=== PATIENT | female | born 1970 | race Caucasian/White ===

== ENCOUNTER 2017-08-30 04:10 | Inpatient (IN) | payer OTHER ==
[~2017-08-30] VITALS: Ht 165.1 cm; Wt 71.4 kg
[~2017-08-30 04:10] MED LIST: AMX500; AMX500 PO
[2017-08-30] MEDS ORDERED: ONDANSETRON INJ 2 MG/ML 2 ML VIAL IV STA (04:40)
[2017-08-30] MEDS ORDERED: MoRPHine SULFATE 4 MG/ML 1 ML CARP\\VIAL IV STA (04:40)
[2017-08-30 05:15] LABS: BASO % 1.2 %; BASO ABS # 0.07 K/uL (0-0.2); EOS % 2.4 %; EOS ABS # 0.14 K/uL (0-0.5); HEMATOCRIT 41.3 % (37-47); HEMOGLOBIN 13.7 g/dL (12.0-16.0); IG# 0.02 K/uL (0.00-0.02); LYMPH % 22.8 %; LYMPH ABS # 1.33 K/uL (1.2-3.4); MEAN CORPUSCULAR HEMOGLOBIN 28.5 pg (25-34); MEAN CORPUSCULAR HGB CONC 33.2 g/dl (32-36); MEAN PLATELET VOLUME 9.8 fL (7.4-10.4); MONO % 8.4 %; MONO ABS # 0.49 K/uL (0.11-0.59); NEUT % 64.9 %; NEUT ABS # 3.79 K/uL (1.4-6.5); PLATELET COUNT 279 K/uL (130-400); RED CELL DISTRIBUTION WIDTH CV 13.3 % (11.5-14.5); RED CELL DISTRIBUTION WIDTH SD 42.3 fL (36.4-46.3); WHITE BLOOD COUNT 5.84 K/uL (4.8-10.8)
[2017-08-30 05:42] LABS: ALBUMIN 4.2 gm/dl (3.4-5.0); ALKALINE PHOSPHATASE 102 U/L (45-117); ALT/SGPT 15 U/L (12-78); CREATININE 0.75 mg/dl (0.60-1.20); GLUCOSE 106 mg/dl (70-99); TOTAL PROTEIN 8.7 gm/dl (6.4-8.2)
[2017-08-30 05:47] LABS: BLOOD UREA NITROGEN 16 mg/dl (7-18); CALCIUM 8.9 mg/dl (8.5-10.1); LIPASE 134 U/L (73-393)
[2017-08-30 05:48] LABS: POTASSIUM 4.4 mmol/L (3.5-5.1); SODIUM 138 mmol/L (136-145)
[2017-08-30 05:53] LABS: AST/SGOT 17 U/L (15-37)
[2017-08-30 05:57] LABS: CARBON DIOXIDE 24 mmol/L (21-32)
[2017-08-30] MEDS ORDERED: ONDANSETRON INJ 2 MG/ML 2 ML VIAL IV PRN (08:15)
[2017-08-30] MEDS ORDERED: OXYCODONE/ACETAMINOPHEN 5-325 TAB PO PRN (08:15)
[2017-08-30] MEDS ORDERED: HYDROmorphone INJ 1 MG/ML SYR IV PRN (08:15)
[2017-08-30] MEDS ORDERED: ACETAMINOPHEN 325 MG TAB PO PRN (08:15)
--- NOTE | 2017-08-30 09:15 | Surgery Consultation ---
Consultation Date of Consultation: Aug 30, 2017. Attending Physician: History of Present Illness pt is a 46 year old female who presents to ER for one day history RUQ pain with nausea and vomiting, the pain is located at RUQ, pt denies fever, no diarrhea, no chest pain, Social History Smoking Status: Never Smoker Smokeless Tobacco Use: No Alcohol Use: none Drug Use: none Allergies Coded Allergies: No Known Allergies (Verified , 08/30/17) Home Medications No Active Prescriptions or Reported Meds Current Inpatient Medications Current Inpatient Medications Medications (Trade) Dose Ordered Sig/Maritza Route Start Time Stop Time Status Last Admin Dose Admin Potassium Chloride/Dextrose/ Sod Cl 1,000 ml @ 100 mls/hr Q10H IV 08/30/17 08:14 09/29/17 08:13 UNV Cefazolin Sodium 1000 mg/Dextrose 55 ml @ 100 mls/hr Q8 IV 08/30/17 14:00 08/31/17 13:59 UNV Ondansetron HCl (Zofran Inj) 4 mg Q4H PRN IV 08/30/17 08:15 09/29/17 08:14 UNV Acetaminophen (Tylenol Tab) 650 mg Q6H PRN PO 08/30/17 08:15 09/29/17 08:14 UNV Oxycodone/ Acetaminophen (Percocet 5-325mg Tab) 1 tab Q4H PRN PO 08/30/17 08:15 09/13/17 08:14 UNV Hydromorphone HCl (Dilaudid Inj) 0.6 mg Q3H PRN IV 08/30/17 08:15 09/13/17 08:14 UNV Ciprofloxacin/ Dextrose 400 mg/ Prmx 200 ml @ 100 mls/hr Q12 IV 08/30/17 09:00 08/31/17 08:59 UNV Review of Systems Constitutional: No fever, No chills, No sweats, No weight loss, No weakness, No fatigue, No problem reported Eyes: No worsening of vision, No eye pain, No redness, No discharge, No diplopia, No problem reported ENT: No hearing loss, No unusual epistaxis, No nasal symptoms, No sore throat, No tinnitus, No dental problems, No trouble swallowing, No problem reported Respiratory: No cough, No sputum, No wheezing, No shortness of breath, No dyspnea on exertion, No dyspnea at rest, No hemoptysis, No problem reported Cardiovascular: No chest pain, No orthopnea, No PND, No edema, No claudication , No palpitations, No problem reported Abdomen: + pain, + nausea, + vomiting Musculoskeletal: No joint pain, No muscle pain, No swelling, No calf pain, No problem reported Genitourinary - Female: No dysuria, No urinary frequency, No urinary urgency, No urinary incontinence, No urinary retention, No hematuria, No dysmenorrhea, No menorrhagia, No metrorrhagia, No rash, No vaginal bleeding, No vaginal discharge, No vaginal itching, No vulvodynia, No , No problem reported Neurologic: No memory loss, No paralysis, No weakness, No numbness/tingling, No vertigo, No balance problems, No problem reported Psychiatric: No depression symptoms, No anhedonism, No anxiety, No insomnia, No substance abuse, No problem reported Endocrine: No fatigue, No excessive thirst, No excessive urination, No problem reported Hematologic / Lymphatic: No abnormal bleeding/bruising, No clotting problems, No swollen lymph nodes, No night sweats, No problem reported Allergic / Immunologic: No environmental allergies, No seasonal allergies, No pet sensitivities, No food allergies, No hives, No frequent infections, No poor healing, No prolonged convalescence, No problem reported Physical Exam Date Time Temp Pulse Resp B/P (MAP) Pulse Ox O2 Delivery O2 Flow Rate FiO2 08/30/17 08:27 70 08/30/17 07:31 62 16 128/76 98 Room Air 08/30/17 06:02 69 16 126/90 95 Room Air 08/30/17 05:07 54 08/30/17 05:00 99 Room Air 08/30/17 05:00 99 Room Air 08/30/17 04:14 36.3 73 18 172/113 100 Room Air General Appearance: WD/WN, no apparent distress Head: normocephalic Eyes: normal inspection ENT: normal ENT inspection Neck: supple, no JVD Respiratory/Chest: chest non-tender, lungs clear, normal breath sounds Cardiovascular: regular rate, rhythm, no edema, no gallop, no JVD, no murmur Abdomen/GI: normal bowel sounds, soft, no organomegaly, no pulsatile mass, normal rectal exam, + tenderness (at RUQ, no rebound pain) Extremities/Musculoskelatal: normal inspection, no calf tenderness, normal capillary refill Neurologic/Psych: no motor/sensory deficits, alert, normal mood/affect Skin: normal color, warm/dry, no rash Laboratory Results Last 24 Hours Test 08/30/17 05:00 08/30/17 05:07 White Blood Count 5.84 K/uL Red Blood Count 4.80 M/uL Hemoglobin 13.7 g/dL Hematocrit 41.3 % Mean Corpuscular Volume 86.0 fL Mean Corpuscular Hemoglobin 28.5 pg Mean Corpuscular Hemoglobin Concent 33.2 g/dl Platelet Count 279 K/uL Mean Platelet Volume 9.8 fL Neutrophils (%) (Auto) 64.9 % Lymphocytes (%) (Auto) 22.8 % Monocytes (%) (Auto) 8.4 % Eosinophils (%) (Auto) 2.4 % Basophils (%) (Auto) 1.2 % Neutrophils # (Auto) 3.79 K/uL Lymphocytes # (Auto) 1.33 K/uL Monocytes # (Auto) 0.49 K/uL Eosinophils # (Auto) 0.14 K/uL Basophils # (Auto) 0.07 K/uL RDW Standard Deviation 42.3 fL RDW Coefficient of Variation 13.3 % Immature Granulocyte % (Auto) 0.3 % Immature Granulocyte # (Auto) 0.02 K/uL Sodium Level 138 mmol/L Potassium Level 4.4 mmol/L Chloride Level 104 mmol/L Carbon Dioxide Level 24 mmol/L Anion Gap 10.0 mmol/L Blood Urea Nitrogen 16 mg/dl Creatinine 0.75 mg/dl Est Creatinine Clear Calc Drug Dose 94.5 ml/min Estimated GFR () 110.8 Estimated GFR (Non- 95.6 BUN/Creatinine Ratio 21.9 Random Glucose 106 mg/dl Calcium Level 8.9 mg/dl Total Bilirubin 0.3 mg/dl Direct Bilirubin < 0.1 mg/dl Aspartate Amino Transf (AST/SGOT) 17 U/L Alanine Aminotransferase (ALT/SGPT) 15 U/L Alkaline Phosphatase 102 U/L Troponin I < 0.015 ng/ml Total Protein 8.7 gm/dl Albumin 4.2 gm/dl Lipase 134 U/L Bedside Troponin I < 0.030 ng/ml Assessment & Plan Assessment: pt is a 46 year old female who presents to ER for one day history RUQ pain, U/S study- acute cholecystitis, cholelithiasis, IMP:acute cholecystitis, cholelithiasis, Plan, admit to hospital, IV fluid antibiotic, control pain, pt will have laparoscopic cholecystectomy, possible open or cholangiogram, D/W pt and her family members about benefits, risks and alternatives of the procedure, the risks - infection, bleeding, injury CBD, bowel, may need ERCP, DVT, VA, , pt and her family members understood, They agree with the plan, I answered all questions,
[2017-08-30 09:58] VITALS: Ht 165.1 cm; Wt 71.4 kg
--- NOTE | 2017-08-30 10:00 | NUR ---
A: Pt arrived to room and ambulated independently to bed. Alert and oriented x4. Vss. Family at bedside. No complaints of pain at this time. Code word and fall agreement completed. Admission completed. Continued care by DONAVON Rivera.
[2017-08-30 10:03] VITALS: BP 124/83; PULSE 62; TEMP 36.6; O2SAT 99
--- NOTE | 2017-08-30 10:05 | DIAGNOSTIC IMAGING REPORT ---
ULTRASOUND RIGHT UPPER QUADRANT ABDOMEN CLINICAL HISTORY: Right upper quadrant abdominal pain. COMPARISON STUDY: No priors. TECHNIQUE: Real-time, grayscale, and color flow sonography of the right upper quadrant of the abdomen was performed. Images are reviewed in the transverse and longitudinal planes. FINDINGS: Liver: The liver is normal in size and echotexture. There is no intrahepatic biliary ductal dilatation. The main portal vein is patent. Gallbladder: There are numerous shadowing calcified gallstones. A gallstone the region of the gallbladder neck measures up to 1.1 cm. The gallbladder wall is top normal in thickness. No pericholecystic fluid is identified. A sonographic Avery's sign is reportedly absent. The common bile duct measures up to 0.5 cm in diameter. Pancreas: Not well visualized due to overlying bowel gas. Right kidney: Survey images of the right kidney demonstrate normal size and echotexture. There is no hydronephrosis. Ascites: None. IMPRESSION: Gallbladder distention and cholelithiasis. Sonographic findings are not definitive for acute cholecystitis. If there is strong clinical concern for cholecystitis a nuclear hepatobiliary scan should be considered for further assessment. Electronically signed by: Brandon Wilburn M.D. 08/30/2017 10:03 AM Dictated Date/Time: 08/30/2017 10:01 AM
[2017-08-30] MEDS: D5W AND 1/2NSS + 20MEQ KCL 1,000 ML IV SCH ×2 (11:02→23:26)
--- NOTE | 2017-08-30 11:21 | DIAGNOSTIC IMAGING REPORT ---
SINGLE VIEW CHEST CLINICAL HISTORY: Atypical chest pain. FINDINGS: An AP, portable, upright chest radiograph is obtained. No prior studies are available for comparison at the time of dictation. Pressure degraded The cardiomediastinal silhouette is unremarkable. There are low lung volumes. There are bibasilar airspace opacities, left greater than right. No large pleural effusion or pneumothorax is seen. The bony thorax is grossly intact. IMPRESSION: There are bibasilar airspace opacities, left greater than right. This could represent atelectasis versus developing pneumonia. Clinical correlation will be required and radiographic follow-up to resolution is recommended. Electronically signed by: Brandon Wilburn M.D. 08/30/2017 11:20 AM Dictated Date/Time: 08/30/2017 11:19 AM
[2017-08-30] MEDS: CIPROFLOXACIN / D5W 400 MG in PREMIXED IN D5W 200 ML IV SCH ×2 (12:42→21:43)
[2017-08-30] MEDS: CEFAZOLIN IV 1,000 MG in SYRINGE 0 ML IV SCH ×2 (14:21→21:42)
[2017-08-30 15:15] VITALS: BP 99/64; PULSE 56; TEMP 36.6; O2SAT 98
--- NOTE | 2017-08-30 17:58 | Anesthesiology Progress Note ---
Anesthesia Progress Note Date of Service Aug 30, 2017. Progress Notes The patient is a 46 y/o female with no significant PMH scheduled for Laparoscopic cholecystectomy with Dr. Burnham tomorrow. EKG on admission showed sinus jus with sinus arrhythmia with HR 54, ST and T wave changes possible anterior ischemia. The patient has no cardiac risk factors and has a good functional status. Troponins were negative. Her labs were unremarkable. An hcg was ordered although the patient states she has not had a period for a year. CXR showed bibasilar opacities atelectasis vs pneumonia. The patient is asymptomatic, afebrile and saturating 99% on RA with clear lung exam so this is likely atelectasis. Airway exam showed mallampati 1 with intact dentition. HR is regular and lungs clear to auscultation bilaterally. The patient was consented for GA. She was instructed to remain NPO after midnight except for a sip of water with medications. All questions were answered.
[2017-08-30] MEDS ORDERED: NURSING DECISION MEDICATION ORDER SCH (21:00)
--- NOTE | 2017-08-30 22:11 | EMERGENCY ROOM VISIT NOTE ---
History First contact with patient: 04:37 Chief Complaint: ABDOMINAL PAIN Stated Complaint: PAIN IN UPPER STOMACH Nursing Triage Summary: Patient reports mid upper abdominal pain that began earlier tonight. Patient has had this before but not often. History of Present Illness The patient is a 46 year old female who presents to the Emergency Room with complaints of right quadrant pain for the past several hours. Patient had spaghetti and meatballs for dinner. She's had similar episodes in the past. She's had no imaging on her gallbladder. She describes the pain as aching, ranging in severity currently 8 out of 10. Nothing makes it better or worse. IT Does not radiate. Patient denies chest pain, dyspnea, fever, chills, vomiting, diarrhea, back pain, urinary symptoms. Review of Systems See HPI for pertinent positives & negatives. A total of 10 systems reviewed and were otherwise negative. Past Medical/Surgical History Medical Problems: (1) Acute cholecystitis None Social History Smoking Status: Never Smoker Smokeless Tobacco Use: No Drug Use: none Marital Status: Housing Status: lives with family Current/Historical Medications No Active Prescriptions or Reported Meds Physical Exam Vital Signs Date Time Temp Pulse Resp B/P (MAP) Pulse Ox O2 Delivery O2 Flow Rate FiO2 08/30/17 07:31 62 16 128/76 98 Room Air 08/30/17 06:02 69 16 126/90 95 Room Air 08/30/17 05:07 54 08/30/17 05:00 99 Room Air 08/30/17 05:00 99 Room Air 08/30/17 04:14 36.3 73 18 172/113 100 Room Air Physical Exam VITALS: Vitals are noted on the nurse's note and reviewed by myself. Vital signs hypertensive GENERAL: White female writhing in pain, in no acute distress, nondiaphoretic, well-developed well-nourished. SKIN: The skin was without rashes, erythema, edema, or bruising. There is no tenting of the skin. Capillary reflex less than 2 seconds. HEAD: Normocephalic atraumatic. EARS: External auditory canals clear, tympanic membranes pearly kelsey without erythema or effusion bilaterally. EYES: Pupils equal round and reactive to light and accommodation. Conjunctivae without injection, sclerae without icterus. Extraocular movements intact. NOSE: Patent, turbinates without inflammation or discharge. MOUTH: Mucous membranes moist. Pharynx without erythema or exudate. Uvula midline. Airway patent. Tongue does not deviate. NECK: Supple without nuchal rigidity. No lymphadenopathy. No thyromegaly. Cervical spine is nontender. No JVD. HEART: Regular rate and rhythm without murmurs gallops or rubs. LUNGS: Clear to auscultation bilaterally without wheezes, rales or rhonchi. No dullness to percussion. No retractions or accessory muscle use. ABDOMEN: Positive bowel sounds x 4. Normal tympanic percussion. Soft, tender to palpation right upper quadrant, no CVA tenderness, without masses or organomegaly. No guarding or rebound tenderness. MUSCULOSKELETAL: No muscle atrophy, erythema, or edema noted. NEURO: Patient was alert and oriented to person place and time. Normal sensation to light and sharp touch. No focal neurological deficits. Medical Decision & Procedures Laboratory Results 08/30/17 05:00 Red Blood Count 4.80, Mean Corpuscular Volume 86.0, Mean Corpuscular Hemoglobin 28.5, Mean Corpuscular Hemoglobin Concent 33.2, Mean Platelet Volume 9.8, Neutrophils (%) (Auto) 64.9, Lymphocytes (%) (Auto) 22.8, Monocytes (%) (Auto) 8.4, Eosinophils (%) (Auto) 2.4, Basophils (%) (Auto) 1.2, Neutrophils # (Auto) 3.79, Lymphocytes # (Auto) 1.33, Monocytes # (Auto) 0.49, Eosinophils # (Auto) 0.14, Basophils # (Auto) 0.07 08/30/17 05:00 Test 08/30/17 05:00 08/30/17 05:07 White Blood Count 5.84 K/uL (4.8-10.8) Red Blood Count 4.80 M/uL (4.2-5.4) Hemoglobin 13.7 g/dL (12.0-16.0) Hematocrit 41.3 % (37-47) Mean Corpuscular Volume 86.0 fL (80-100) Mean Corpuscular Hemoglobin 28.5 pg (25-34) Mean Corpuscular Hemoglobin Concent 33.2 g/dl (32-36) Platelet Count 279 K/uL (130-400) Mean Platelet Volume 9.8 fL (7.4-10.4) Neutrophils (%) (Auto) 64.9 % Lymphocytes (%) (Auto) 22.8 % Monocytes (%) (Auto) 8.4 % Eosinophils (%) (Auto) 2.4 % Basophils (%) (Auto) 1.2 % Neutrophils # (Auto) 3.79 K/uL (1.4-6.5) Lymphocytes # (Auto) 1.33 K/uL (1.2-3.4) Monocytes # (Auto) 0.49 K/uL (0.11-0.59) Eosinophils # (Auto) 0.14 K/uL (0-0.5) Basophils # (Auto) 0.07 K/uL (0-0.2) RDW Standard Deviation 42.3 fL (36.4-46.3) RDW Coefficient of Variation 13.3 % (11.5-14.5) Immature Granulocyte % (Auto) 0.3 % Immature Granulocyte # (Auto) 0.02 K/uL (0.00-0.02) Anion Gap 10.0 mmol/L (3-11) Est Creatinine Clear Calc Drug Dose 94.5 ml/min Estimated GFR () 110.8 Estimated GFR (Non- 95.6 BUN/Creatinine Ratio 21.9 (10-20) Calcium Level 8.9 mg/dl (8.5-10.1) Total Bilirubin 0.3 mg/dl (0.2-1) Direct Bilirubin < 0.1 mg/dl (0-0.2) Aspartate Amino Transf (AST/SGOT) 17 U/L (15-37) Alanine Aminotransferase (ALT/SGPT) 15 U/L (12-78) Alkaline Phosphatase 102 U/L (45-117) Troponin I < 0.015 ng/ml (0-0.045) Total Protein 8.7 gm/dl (6.4-8.2) Albumin 4.2 gm/dl (3.4-5.0) Lipase 134 U/L (73-393) Bedside Troponin I < 0.030 ng/ml (0-0.045) Medications Administered Medications (Trade) Dose Ordered Sig/Maritza Route Start Time Stop Time Status Last Admin Dose Admin Morphine Sulfate (MoRPHine SULFATE INJ) 4 mg NOW STAT IV 08/30/17 04:40 08/30/17 04:43 DC 08/30/17 05:11 4 MG Ondansetron HCl (Zofran Inj) 4 mg NOW STAT IV 08/30/17 04:40 08/30/17 04:43 DC 08/30/17 05:10 4 MG ED Course Prior records/ancillary studies reviewed. Triage Nursing notes reviewed. Additional history obtained from family. The patient's history was concerning for abdominal pain. Differential diagnosis: Etiologies such as appendicitis, diverticulitis, PUD, biliary pathology, UTI, pancreatitis, obstruction, mesenteric ischemia, aortic pathology, infections, inflammatory bowel disease, renal colic, as well as others were entertained. Physical examination findings: As above. ER treatment provided: Morphine, Zofran, IV fluids On reassessment the patient felt better. Diagnostics interpreted by me: ECG: Normal sinus, normal intervals, no acute ST-T wave changed. Impression normal sinus rhythm interpreted by myself The labs revealed no leukocytosis. Mildly elevated glucose. Negative troponin Imaging studies: Ultrasound she is a non-mobile stone in the neck and gallbladder. Chest x-ray with no acute consolidation, pneumothorax. Per my interpretation Consultation: A consultation was placed with the surgeon, Dr. Burnham. The case was discussed and diagnostics were reviewed. The patient was evaluated in the ER for further treatment. Exam and history seem consistent with biliary colic with concerns for acute cholecystitis. Patient will be evaluated by surgery. Patient felt better after being medicated as above. No leukocytosis. By the evaluation outlined above emergent etiologies such as appendicitis, diverticulitis, PUD, UTI, pancreatitis, obstruction, mesenteric ischemia, aortic pathology, infections, inflammatory bowel disease, renal colic, as well as others were deemed relatively unlikely. The pt informed about the findings as listed above. All questions were answered and pleased with the treatment. Case reviewed by attending Medical Decision As above Medication Reconcilliation Current Medication List: was personally reviewed by me Blood Pressure Screening Patient's blood pressure: Elevated blood pressure Blood pressure disposition: Referred to PCP Impression Primary Impression: Acute cholecystitis Departure Information Dispostion Being Evaluated By Surgeon Condition GOOD Prescriptions No Active Prescriptions or Reported Meds Referrals [facility] (PCP) Patient Instructions My [facility]
[2017-08-30 22:49] VITALS: BP 122/78; PULSE 51; TEMP 36.6; O2SAT 97
[2017-08-31] VITALS (10 sets, daily range): BP systolic 114–135; BP diastolic 71–88; PULSE 60–86; TEMP 36.3–36.9; O2SAT 92–99
[2017-08-31] MEDS: D5W AND 1/2NSS + 20MEQ KCL 1,000 ML IV SCH ×2 (06:00→21:28)
[2017-08-31] MEDS: CEFAZOLIN IV 1,000 MG in SYRINGE 0 ML IV SCH ×2 (06:00→13:27)
[2017-08-31 06:18] LABS: BASO % 0.4 %; BASO ABS # 0.02 K/uL (0-0.2); EOS % 3.3 %; EOS ABS # 0.15 K/uL (0-0.5); HEMATOCRIT 39.8 % (37-47); HEMOGLOBIN 13.3 g/dL (12.0-16.0); IG# 0.01 K/uL (0.00-0.02); LYMPH % 36.5 %; LYMPH ABS # 1.65 K/uL (1.2-3.4); MEAN CELL VOLUME 87.3 fL (80-100); MEAN CORPUSCULAR HEMOGLOBIN 29.2 pg (25-34); MEAN CORPUSCULAR HGB CONC 33.4 g/dl (32-36); MEAN PLATELET VOLUME 9.7 fL (7.4-10.4); MONO % 12.6 %; MONO ABS # 0.57 K/uL (0.11-0.59); NEUT ABS # 2.12 K/uL (1.4-6.5); PLATELET COUNT 219 K/uL (130-400); RED CELL DISTRIBUTION WIDTH CV 13.4 % (11.5-14.5); RED CELL DISTRIBUTION WIDTH SD 42.7 fL (36.4-46.3); WHITE BLOOD COUNT 4.52 K/uL (4.8-10.8)
[2017-08-31 06:53] LABS: ALBUMIN 3.6 gm/dl (3.4-5.0); CALCIUM 8.7 mg/dl (8.5-10.1); CREATININE 0.83 mg/dl (0.60-1.20); POTASSIUM 4.9 mmol/L (3.5-5.1)
[2017-08-31 06:57] LABS: TOTAL PROTEIN 7.8 gm/dl (6.4-8.2)
--- NOTE | 2017-08-31 08:33 | History & Physical Bridge Note ---
H&P Re-Evaluation Bridge Note: I have examined the patient, reviewed the History & Physical and in the interval since the performance of the History & Physical I have noted the following changes of clinical significance: No changes noted
[2017-08-31] MEDS ORDERED: PROPOFOL IV EMULSION 10 MG/ML 20 ML VIAL IV ONE (09:03)
[2017-08-31] MEDS ORDERED: ROCURONIUM BROMIDE 10 MG/ML 5 ML VIAL IV ONE (09:04)
[2017-08-31] MEDS ORDERED: GLYCOPYRROLATE INJ 0.2 MG/ML VIAL ONE (09:04)
[2017-08-31] MEDS ORDERED: NEOSTIGMINE METHYLSULFATE 5 MG/5 ML SYR ONE (09:04)
[2017-08-31] MEDS ORDERED: LIDOCAINE HCL 2% 2 ML VIAL (20MG/ML) ONE (09:04)
[2017-08-31] MEDS ORDERED: FENTANYL CITRATE INJ 50 MCG/1 ML 2 ML VIAL ONE ×2 (09:04→10:01)
[2017-08-31] MEDS ORDERED: MIDAZOLAM HCL 1 MG/ML 2ML VIAL ONE (09:04)
[2017-08-31] MEDS ORDERED: EpHEDrine SULFATE INJ 50 MG/ML AMP IV PRN (09:15)
[2017-08-31] MEDS ORDERED: ATROPINE SULFATE 0.1 MG/ML 5ML SYR IV PRN (09:15)
[2017-08-31] MEDS ORDERED: HYDROmorphone INJ 1 MG/ML SYR IV PRN (09:15)
[2017-08-31] MEDS ORDERED: ONDANSETRON INJ 2 MG/ML 2 ML VIAL IV PRN (09:15)
[2017-08-31] MEDS ORDERED: LIDOCAINE HCL 1% 20 ML VIAL ONE (09:29)
[2017-08-31] MEDS ORDERED: BUPIVACAINE 0.5 % 5 MG/1 ML MPF 30ML VIAL ONE (09:30)
[2017-08-31] MEDS ORDERED: BACITRACIN OINT 15 GM TUBE ONE (09:30)
[2017-08-31] MEDS ORDERED: DEXAMETHASONE SOD INJ 4 MG/ML VIAL ONE (10:06)
[2017-08-31] MEDS: CIPROFLOXACIN / D5W 400 MG in PREMIXED IN D5W 200 ML IV SCH ×2 (10:24→21:28)
--- NOTE | 2017-08-31 10:48 | [facility] Post Operative Brief Note ---
Immediate Operative Summary Operative Date Aug 31, 2017. Pre-Operative Diagnosis acute cholecystitis, cholelithiasis Post-Operative Diagnosis Same Procedure(s) Performed Laparoscopic Cholecystectomy Surgeon Dr Burnham Manager Career Surgeon(s) Arlet Lares PA-C Estimated Blood Loss 10ml Findings acute cholecystitis, cholelithiasis Fluids (cc crystalloids) 1000ml Specimens A. Gallbladder Drains none Anesthesia general Complication(s) None Disposition Recovery Room / PACU
--- NOTE | 2017-08-31 11:21 | Discharge Instructions ---
Discharge Instructions Date of Service Aug 31, 2017. Admission Reason for Admission: Acute Cholecystitis Discharge Discharge Diagnosis / Problem: same Discharge Goals Goal(s): Decrease discomfort, Improve function Activity Recommendations Activity Limitations: as noted below No heavy lifting over 20 pounds for 3-4 weeks No strenuous activity until cleared by surgeon No submerging incisions underwater for 2 weeks (no bathing, swimming, or hot tubs) No driving while taking narcotic pain medication or until you are pain free . Instructions / Follow-Up Instructions / Follow-Up You may shower in 4 days and then remove dressings. Sponge bath and wash hair in meantime. Try to keep dressings clean and dry Leave steri strips on incisions for 7 days and then remove. They may fall off on their own that is okay. Walking and light activity is encouraged You will be given Narcotic pain medication to take as needed for moderate to severe pain. This medication may make you drowsy. You may take extra strength Tylenol or Ibuprofen as needed for mild pain. Follow-up in surgical office in 2 weeks, please call office at [phone] to make an appointment Current Hospital Diet Patient's current hospital diet: Regular Diet Discharge Diet Recommended Diet: Regular Diet, Low Fat Diet Procedures Procedures Performed: Laparoscopic Cholecystectomy Pending Studies Studies pending at discharge: yes List of pending studies: Gallbladder pathology will be reviewed at follow up visit Medical Emergencies . Who to Call and When: Medical Emergencies: If at any time you feel your situation is an emergency, please call 911 immediately. . Non-Emergent Contact Non-Emergency issues call your: Primary Care Provider, Surgeon Call Non-Emergent contact if: you have a fever, temperature is above 101, your pain is not controlled, your pain is worsening, your pain is unusual for you, wound has increased drainage, wound has increased redness, wound has increased pain . "Provider Documentation" section prepared by Arlet Lares. . VTE Core Measure Inpt VTE Proph given/why not?: SCD's [place] Drug Monitoring Program Search Results: patient reviewed within database, no issues identified
--- NOTE | 2017-08-31 11:38 | OPERATIVE REPORT ---
DATE OF OPERATION: 08/31/2017 PREOPERATIVE DIAGNOSES: Acute cholecystitis, cholelithiasis. POSTOPERATIVE DIAGNOSIS: Same. OPERATION: Laparoscopic cholecystectomy. SURGEON: Dr. Ce Burnham. TANK FURNACE OPERATOR: Arlet Lares PA-C. ANESTHESIA: General. ESTIMATED BLOOD LOSS: About 10 mL. FINDINGS: Acute cholecystitis with cholelithiasis. COMPLICATIONS: None. INDICATIONS FOR THE PROCEDURE: This is a 46-year-old female who presented to the ED with right upper quadrant pain. The patient had ultrasound diagnoses acute cholecystitis, cholelithiasis. The patient required to do laparoscopy cholecystectomy, possible open, possible cholangiogram. I did talk to the patient about the benefit and risk, alternate procedure. I indicated the risks may include but not limited such as bleeding, infection, injury to common bile duct, injury to bowel, may need ERCP. The patient understands. She signed informed consent and I answered all questions. OPERATION AND FINDINGS: DETAILS OF PROCEDURE: We brought the patient to the OR, put the patient in the supine position. The patient received SCD on bilateral legs to prevent DVT. Also, the patient received 400 mg Cipro for prophylactic antibiotic. The patient received general anesthesia without difficulty. The abdomen was prepped and draped in routine sterile fashion. After a timeout, I injected local anesthesia by using 1% lidocaine mixed with 0.5% Marcaine just above the umbilical. Then I made a small incision just above umbilical, opened fascia and opened peritoneum under direct vision. I put a Lopez trocar in, connected to CO2 to create pneumoperitoneum. Flow rate is 6 liter per minute. Pressure not more than 14 mmHg. Once we get a nice pneumoperitoneum, we put the camera in looked around the abdomen shows normal findings on the stomach, small bowel, large bowel, liver; however, the patient had significant acute cholecystitis, gallbladder wall thickening, edema. Confirmed the patient had acute cholecystitis. Then, we put another 3.5 mm trocar on the right upper quadrant. Once all trocars in we put grasper in to hold the base of the gallbladder, put direction to the diaphragm and then we put another grasper in to hold the pouch of the gallbladder, put latter to expose the triangle of Calot. The cystic duct was identified and mobilized. I put two 5 mm metal clips on the proximal cystic duct, 1 on the distal cystic duct then I used scissor to transection the cystic duct. The cystic artery was identified and mobilized. I put two 5 mm metal clips on the proximal cystic arterial, 1 on the distal cystic artery. Then I used scissor to transection the cystic artery. Rechecked no active bleeding, no bile leak. Then I used Bovie to take down the gallbladder from the liver bed without difficulty. Rechecked no bile leak or active bleeding from the liver bed. Then we removed the gallbladder through the catch bag, then we reinserted Lopez trocar in connected to CO2 to create pneumoperitoneum. Again looked around the abdomen. No active bleeding, no bile leak from the liver bed. No injury to the bowel. Then we removed all trocars under direct vision. No active bleeding from trocar sites. The pneumoperitoneum was released. I closed the umbilical incision, fascial layer by using #1 Vicryl [id number] x2, closed subcutaneous layer by using 2-0 Vicryl, closed skin by using 4-0 Vicryl and closed another 3.5 mm trocar site skin only by using 4-0 Vicryl. We put the dressing on. The patient tolerated the procedure well. All the instrument, needle and sponge count correct x2 at the end of case. The patient transferred to recovery room in stable condition. The specimen sent to pathology. I attest to the content of the Intraoperative Record and any orders documented therein. Any exceptions are noted below. SALTY
[2017-08-31] MEDS: FENTANYL CITRATE INJ 50 MCG/1 ML 2 ML VIAL IV PRN ×2 (11:44→11:51)
--- NOTE | 2017-08-31 11:54 | Anesthesiology Progress Note ---
Anesthesia Post Op Note Date & Time Aug 31, 2017 at 11:54 Vital Signs Pain Intensity: 6.0 Vital Signs Past 12 Hours Date Time Temp Pulse Resp B/P (MAP) Pulse Ox O2 Delivery O2 Flow Rate FiO2 08/31/17 11:46 139/93 08/31/17 11:42 58 16 08/31/17 11:42 58 16 94 08/31/17 11:41 152/96 08/31/17 11:37 60 17 08/31/17 11:37 61 17 92 08/31/17 11:36 149/91 08/31/17 11:32 58 14 97 08/31/17 11:32 59 14 08/31/17 11:31 138/99 08/31/17 11:27 68 14 08/31/17 11:27 69 14 100 08/31/17 11:26 153/98 08/31/17 11:25 62 14 99 08/31/17 11:25 61 14 08/31/17 11:21 149/98 08/31/17 11:20 67 15 08/31/17 11:20 68 15 98 08/31/17 11:16 156/96 08/31/17 11:15 65 12 98 08/31/17 11:15 36.6 74 12 156/96 97 Oxymask 10 08/31/17 11:15 65 12 08/31/17 08:00 Room Air 08/31/17 06:53 36.3 61 16 114/77 (89) 98 Room Air Notes Mental Status: alert / awake / arousable, participated in evaluation Pt Amnestic to Procedure: Yes Nausea / Vomiting: adequately controlled Pain: adequately controlled Airway Patency, RR, SpO2: stable & adequate BP & HR: stable & adequate Hydration State: stable & adequate Anesthetic Complications: no major complications apparent
--- NOTE | 2017-08-31 13:19 | NUR ---
ID: The pt. has demonstrated progress toward goals and readiness for discharge as demonstrated by: Pt. is A/Ox4, VSS. Returned from OR at 1230, is drowsy, and tolerating pain with ROUTINE/PRN pain medications. Tolerating a Reg diet. Discharge plan home without any needs. Encouraged to ring for assistance, use Triflow, and cough and deep breath 10x/hr. Call jurado within reach. See EMR for vitals and assessment details. Will continue to monitor.
[2017-08-31] MEDS ORDERED: NURSING DECISION MEDICATION ORDER SCH (15:45)
[2017-08-31] MEDS ORDERED: COUGH DROP (SUGAR FREE) LOZ 24 LOZ/1 BOX PO PRN (16:00)
--- NOTE | 2017-08-31 16:15 | Progress Note ---
Progress Note Date of Service Aug 31, 2017. Progress Note Patient evaluated a few hours post op - moderate pain, controlled with IV pain medication not oral pain medication due to sore throat. - had regular diet post op, no nausea or vomiting but appetite low Plan: Not ready for discharge Encouraged po oral pain medication instead of IV Encouraged OOB to chair and ambulation Continue diet as tolerated for dinner Will evaluate tomorrow morning, hopeful discharge tomorrow am
--- NOTE | 2017-08-31 19:53 | NUR ---
A: Patient reported left chest pain. Denied SOB, pain left arm, jaw pain, nausea. MD Burnham contacted and told nursing staff to call his on-call service. On-call MD Kaur ordered ECG. RN contacted district leader for stat ECG.
[2017-08-31] MEDS ORDERED: NITROGLYCERIN 0.4 MG SL PER TAB CHARGE ONE (20:41)
[2017-08-31] MEDS ORDERED: NITROGLYCERIN 0.4 MG SL PER TAB CHARGE SL PRN (21:00)
--- NOTE | 2017-08-31 21:20 | NUR ---
A: Arrived to unit via bed, A&O x4, bilateral clear lungs on RA, reported a headache, abdomen is soft, tender with hypoactive bowel sounds, 4-2x2 dressing are clean dry intact, spot of shadowing on two left dressings, IV attached, monitor leads place on, oriented to room.
--- NOTE | 2017-08-31 21:23 | Medical Consult ---
Consultation Date of Consultation: Aug 31, 2017. Attending Physician: Ce Burnham MD Reason for Consultation: Chest Pain History of Present Illness 46 year old female who is POD# 0 from lap cholecystectomy. She presented to the ED yesterday with RUQ pain. RUQ US was obtained that suggested cholecystitis. She underwent lap cholecystectomy this morning. Patient reports that she developed left sided chest pain yesterday evening however did not mention it to anyone. Pain has been worsening since her procedure this morning. She describes it as a constant aching sensation. She currently rates it # 6/10. No radiation of the pain into the jaw, shoulder, or arm. She denies associated lightheadedness, shortness of breath, nausea, or diaphoresis. EKG was obtained that showed new T-wave flattening inferiorly. She reports a poor appetite since the surgery. Incisional pain is currently being controlled with IV and oral pain medicine. Patient was given SL nitro x 1 during my exam and pain improved from #6/10 to #5/10. Past Medical/Surgical History Surgical Problems: (1) S/P cholecystectomy Status: Chronic Social History Smoking Status: Never Smoker Alcohol Use: none Allergies Coded Allergies: No Known Allergies (Verified , 08/30/17) Home Medications Active No Active Prescriptions or Reported Medications Current Inpatient Medications Current Inpatient Medications Medications (Trade) Dose Ordered Sig/Maritza Route Start Time Stop Time Status Last Admin Dose Admin Potassium Chloride/Dextrose/ Sod Cl 1,000 ml @ 100 mls/hr Q10H IV 08/30/17 10:30 09/29/17 10:29 08/31/17 06:00 100 MLS/HR Ondansetron HCl (Zofran Inj) 4 mg Q4H PRN IV 08/30/17 08:15 09/29/17 08:14 Acetaminophen (Tylenol Tab) 650 mg Q6H PRN PO 08/30/17 08:15 09/29/17 08:14 08/31/17 19:32 650 MG Oxycodone/ Acetaminophen (Percocet 5-325mg Tab) 1 tab Q4H PRN PO 08/30/17 08:15 09/13/17 08:14 Hydromorphone HCl (Dilaudid Inj) 0.6 mg Q3H PRN IV 08/30/17 08:15 09/13/17 08:14 Ciprofloxacin/ Dextrose 400 mg/ Prmx 200 ml @ 100 mls/hr Q12H IV 08/30/17 10:00 09/09/17 09:59 08/31/17 10:24 100 MLS/HR Menthol (Nice Juana) 1 juana Q1H PRN PO 08/31/17 16:00 09/30/17 15:59 08/31/17 16:13 1 JUANA Nitroglycerin (Nitrostat Tab) 0.4 mg UD PRN SL 08/31/17 21:00 09/30/17 20:59 Review of Systems ROS per HPI, all other systems reviewed and negative Physical Exam Date Time Temp Pulse Resp B/P (MAP) Pulse Ox O2 Delivery O2 Flow Rate FiO2 08/31/17 19:21 36.7 81 16 135/88 (104) 92 Room Air 08/31/17 15:30 36.5 76 16 116/76 (89) 94 Room Air 08/31/17 15:30 Room Air 08/31/17 13:36 74 16 120/85 (97) 98 Nasal Cannula 2.0 08/31/17 13:22 64 12 124/85 (98) 99 Nasal Cannula 2.0 08/31/17 13:08 60 16 125/86 (99) 98 Nasal Cannula 2.0 08/31/17 12:27 92 Nasal Cannula 2.0 Oxymask 08/31/17 12:25 92 Nasal Cannula 2.0 08/31/17 12:24 36.7 61 18 117/80 (92) 92 Nasal Cannula 2.0 08/31/17 12:11 119/84 08/31/17 12:08 58 16 08/31/17 12:08 58 16 99 08/31/17 12:06 123/90 08/31/17 12:03 57 16 08/31/17 12:03 57 16 99 08/31/17 12:02 58 15 08/31/17 12:02 58 15 98 08/31/17 12:01 135/93 08/31/17 11:58 36.4 08/31/17 11:57 61 26 98 08/31/17 11:57 61 26 08/31/17 11:56 53 16 100 08/31/17 11:56 53 16 08/31/17 11:52 60 15 08/31/17 11:52 59 15 98 08/31/17 11:51 139/87 08/31/17 11:47 57 14 92 08/31/17 11:47 57 14 08/31/17 11:46 139/93 08/31/17 11:42 58 16 08/31/17 11:42 58 16 94 08/31/17 11:41 152/96 08/31/17 11:37 60 17 08/31/17 11:37 61 17 92 08/31/17 11:36 149/91 08/31/17 11:32 58 14 97 08/31/17 11:32 59 14 08/31/17 11:31 138/99 08/31/17 11:27 68 14 08/31/17 11:27 69 14 100 08/31/17 11:26 153/98 08/31/17 11:25 62 14 99 08/31/17 11:25 61 14 08/31/17 11:21 149/98 08/31/17 11:20 67 15 08/31/17 11:20 68 15 98 08/31/17 11:16 156/96 08/31/17 11:15 65 12 98 08/31/17 11:15 36.6 74 12 156/96 97 Oxymask 10 08/31/17 11:15 65 12 08/31/17 08:00 Room Air 08/31/17 06:53 36.3 61 16 114/77 (89) 98 Room Air 08/30/17 23:25 Room Air 08/30/17 22:49 36.6 51 16 122/78 (93) 97 Room Air General Appearance: WD/WN, no apparent distress Head: normocephalic, atraumatic Eyes: normal inspection, EOMI, sclerae normal ENT: hearing grossly normal, + pertinent finding (mucous membranes moist) Neck: supple, no JVD, trachea midline Respiratory/Chest: lungs clear, normal breath sounds, no respiratory distress, + pertinent finding (left chest wall tenderness) Cardiovascular: regular rate, rhythm, no edema, normal peripheral pulses Abdomen/GI: normal bowel sounds, soft, no organomegaly, + tenderness ( incisional) Extremities/Musculoskelatal: normal inspection, no calf tenderness, normal capillary refill Neurologic/Psych: no motor/sensory deficits, alert, normal mood/affect, oriented x 3 Skin: normal color, warm/dry Laboratory Results Last 24 Hours Test 08/31/17 05:47 08/31/17 20:32 White Blood Count 4.52 K/uL Red Blood Count 4.56 M/uL Hemoglobin 13.3 g/dL Hematocrit 39.8 % Mean Corpuscular Volume 87.3 fL Mean Corpuscular Hemoglobin 29.2 pg Mean Corpuscular Hemoglobin Concent 33.4 g/dl Platelet Count 219 K/uL Mean Platelet Volume 9.7 fL Neutrophils (%) (Auto) 47.0 % Lymphocytes (%) (Auto) 36.5 % Monocytes (%) (Auto) 12.6 % Eosinophils (%) (Auto) 3.3 % Basophils (%) (Auto) 0.4 % Neutrophils # (Auto) 2.12 K/uL Lymphocytes # (Auto) 1.65 K/uL Monocytes # (Auto) 0.57 K/uL Eosinophils # (Auto) 0.15 K/uL Basophils # (Auto) 0.02 K/uL RDW Standard Deviation 42.7 fL RDW Coefficient of Variation 13.4 % Immature Granulocyte % (Auto) 0.2 % Immature Granulocyte # (Auto) 0.01 K/uL Sodium Level 140 mmol/L Potassium Level 4.9 mmol/L Chloride Level 107 mmol/L Carbon Dioxide Level 29 mmol/L Anion Gap 4.0 mmol/L Blood Urea Nitrogen 9 mg/dl Creatinine 0.83 mg/dl Est Creatinine Clear Calc Drug Dose 85.4 ml/min Estimated GFR () 98.0 Estimated GFR (Non- 84.6 BUN/Creatinine Ratio 10.8 Random Glucose 110 mg/dl Calcium Level 8.7 mg/dl Total Bilirubin 0.4 mg/dl Aspartate Amino Transf (AST/SGOT) 11 U/L Alanine Aminotransferase (ALT/SGPT) 14 U/L Alkaline Phosphatase 95 U/L Total Protein 7.8 gm/dl Albumin 3.6 gm/dl Globulin 4.2 gm/dl Albumin/Globulin Ratio 0.9 Creatine Kinase MB Ratio Assessment & Plan CHEST PAIN - patient POD#0 lap cholecystectomy for acute cholecystitis - patient reports chest pain that has been present since last evening and has worsened postoperatively - EKG shows new T-wave flattening inferiorly and Laterally; patient did have relief with SL nitro - transfer to [facility], cycle cardiac enzymes, resting echo in AM, CT chest for PE given recent surgery - suspect discomfort etiology is GI / from gas insufflation from recent surgery however given EKG changes and risk for PE given recent surgery, will complete above work up S/P LAP CHOLECYSTECTOMY - POD#0 - management as per surgery DVT PROPHYLAXIS - SCDs per surgery Attending Addendum: The patient was seen and examined Has has chest pain yesterday and again after Lap Jade today -received with Nitro Has new EKG changes -Inferolateral T wave inversion O/E Anxious Hemodynamically stable Chest-clear Heart-regular Abdomen-s./p Lap Jade,,bowel sound present,mildly tender Extremities-negative for any Edema Labs and EKG noted Will R/O for any ACS and PE Monitor in Tele -overnight Agree with the assessment and plan Dr Dallas Cobb
[2017-08-31] MEDS ORDERED: OPTIRAY 320 IV PRN (21:30)
[2017-08-31 21:32] LABS: HEMATOCRIT 42.9 % (37-47); HEMOGLOBIN 14.2 g/dL (12.0-16.0); MEAN CELL VOLUME 86.7 fL (80-100); MEAN CORPUSCULAR HEMOGLOBIN 28.7 pg (25-34); MEAN PLATELET VOLUME 9.6 fL (7.4-10.4); PLATELET COUNT 256 K/uL (130-400); RED CELL DISTRIBUTION WIDTH CV 13.4 % (11.5-14.5); RED CELL DISTRIBUTION WIDTH SD 42.6 fL (36.4-46.3); WHITE BLOOD COUNT 8.98 K/uL (4.8-10.8)
[2017-08-31 21:37] LABS: MEAN CORPUSCULAR HGB CONC 33.1 g/dl (32-36)
--- NOTE | 2017-08-31 21:43 | DIAGNOSTIC IMAGING REPORT ---
(CHEST FOR PE) ANGIO WITH CT DOSE: 286.91 mGy.cm HISTORY: 46 years-old Female presents with acute atypical chest pain TECHNIQUE: Multiple CTA images of the chest were obtained after the intravenous administration of 89 ml Optiray 320. Coronal and sagittal MIPS were obtained from the axial data set and were submitted for review. A dose lowering technique was utilized adhering to the principles of ALARA. COMPARISON: Portable chest radiograph 08/30/2017. FINDINGS: CTA: Heart is normal in size without pericardial effusion. Thoracic aorta is normal in both course and caliber without aneurysm or dissection. The imaged great vessels appear patent. The pulmonary arterial tree is opacified to level of the proximal subsegmental branches and demonstrates no focal filling defects to suggest pulmonary thromboembolic disease. CT CHEST: Heterogeneously enlarged thyroid. No pathologic adenopathy about the chest identified. Subsegmental bibasilar consolidative and groundglass opacities are noted with trace left pleural effusion. No pneumothorax. Central airways are patent. There is a mild amount of pneumoperitoneum with free air interposed between the liver and right hemidiaphragm. Soft tissues are unremarkable. Bones appear intact. IMPRESSION: 1. No evidence of pulmonary thromboembolic disease. 2. Bibasilar consolidative and groundglass opacities suggest atelectasis or pneumonia with trace left pleural effusion. 3. Small amount of pneumoperitoneum of the right upper abdomen likely secondary to recent cholecystectomy. The above report was generated using voice recognition software. It may contain grammatical, syntax or spelling errors. Electronically signed by: Shawn Howard M.D. 08/31/2017 9:42 PM Dictated Date/Time: 08/31/2017 9:31 PM
[2017-08-31 22:25] LABS: BLOOD UREA NITROGEN 6 mg/dl (7-18); GLUCOSE 134 mg/dl (70-99)
[2017-08-31 22:26] LABS: ALBUMIN 3.9 gm/dl (3.4-5.0); ALKALINE PHOSPHATASE 111 U/L (45-117); ALT/SGPT 20 U/L (12-78); AST/SGOT 21 U/L (15-37); CALCIUM 9.2 mg/dl (8.5-10.1); CARBON DIOXIDE 26 mmol/L (21-32); CKMB < 0.5 ng/ml (0.5-3.6); POTASSIUM 3.9 mmol/L (3.5-5.1); SODIUM 137 mmol/L (136-145); TOTAL PROTEIN 8.7 gm/dl (6.4-8.2)
--- NOTE | 2017-08-31 22:36 | NUR ---
A: Dangling and standing in room - tolerating well, family at bedside.
--- NOTE | 2017-09-01 | NUR ---
assessment completed refer to emr. vss. sr on tele. denies pain. pt care provided. denies further needs. call jurado in reach
[2017-09-01 02:18] LABS: CKMB 0.6 ng/ml (0.5-3.6)
[2017-09-01 03:57] VITALS: BP 113/72; PULSE 91; TEMP 36.8; O2SAT 92
--- NOTE | 2017-09-01 03:59 | NUR ---
assessment unchanged refer to emr. vss. sr on tele. denies pain. pt care provided. denies further needs. call jurado in reach
[2017-09-01 07:36] VITALS: BP 112/75; PULSE 71; TEMP 36.8; O2SAT 93
--- NOTE | 2017-09-01 08:10 | NUR ---
A: Pt sitting at edge of bed eating breakfast, was up in hallways walking. Alert and oriented x4. Vss. No complaints. Normal sinus on monitor. Denies chest pain or shortness of breath. IV fluids infusing. Call jurado within reach. Encouraged to ring for assistance. Will continue to monitor.
[2017-09-01 08:24] LABS: HEMATOCRIT 43.6 % (37-47); HEMOGLOBIN 14.2 g/dL (12.0-16.0); MEAN CORPUSCULAR HEMOGLOBIN 28.3 pg (25-34); MEAN CORPUSCULAR HGB CONC 32.6 g/dl (32-36); MEAN PLATELET VOLUME 9.7 fL (7.4-10.4); PLATELET COUNT 274 K/uL (130-400); RED CELL DISTRIBUTION WIDTH CV 13.4 % (11.5-14.5); RED CELL DISTRIBUTION WIDTH SD 42.7 fL (36.4-46.3); WHITE BLOOD COUNT 8.72 K/uL (4.8-10.8)
--- NOTE | 2017-09-01 08:48 | Anesthesiology Progress Note ---
Anesthesia Post Op Note Date & Time Sep 01, 2017 at 08:47 Vital Signs Vital Signs Past 12 Hours Date Time Temp Pulse Resp B/P (MAP) Pulse Ox O2 Delivery O2 Flow Rate FiO2 09/01/17 07:36 36.8 71 18 112/75 (87) 93 Room Air 09/01/17 04:01 Room Air 09/01/17 03:57 36.8 91 16 113/72 (86) 92 Room Air 09/01/17 00:00 Room Air 08/31/17 23:17 36.9 77 15 114/71 (85) 94 Room Air 08/31/17 21:20 36.7 86 22 135/84 (101) 93 Room Air 08/31/17 21:19 36.4 68 16 92 Notes Mental Status: alert / awake / arousable, participated in evaluation Pt Amnestic to Procedure: Yes Nausea / Vomiting: adequately controlled Pain: adequately controlled Airway Patency, RR, SpO2: stable & adequate BP & HR: stable & adequate Hydration State: stable & adequate Anesthetic Complications: no major complications apparent
[2017-09-01 09:28] LABS: ALBUMIN 3.8 gm/dl (3.4-5.0); ALT/SGPT 18 U/L (12-78); AST/SGOT 20 U/L (15-37); BLOOD UREA NITROGEN 7 mg/dl (7-18); CALCIUM 8.8 mg/dl (8.5-10.1); CARBON DIOXIDE 26 mmol/L (21-32); CREATININE 0.84 mg/dl (0.60-1.20); GLUCOSE 104 mg/dl (70-99); POTASSIUM 3.9 mmol/L (3.5-5.1); SODIUM 137 mmol/L (136-145); TOTAL PROTEIN 8.3 gm/dl (6.4-8.2)
[2017-09-01 09:35] LABS: ALKALINE PHOSPHATASE 101 U/L (45-117); CKMB < 0.5 ng/ml (0.5-3.6)
--- NOTE | 2017-09-01 10:01 | Surgery Progress Note ---
Surgery Progress Note Date of Service Sep 01, 2017. Subjective Post OP Day: 1 (s/p lap raquel) + feeling well, + ambulating, + flatus, + pain controlled, + diet (tolerated regular diet), No complaints, No chest pain, No bowel movement, No nausea, No vomiting Complained of chest pain last evening since surgery. EKG showed some nonspecific T wave changes, patient was transferred to telemetry for observation Troponin and Ck-MB wnl CTA showed no PE Repeat cardiac enzymes normal this am vitals stable Objective Vital Signs: Date Time Temp Pulse Resp B/P (MAP) Pulse Ox O2 Delivery O2 Flow Rate FiO2 09/01/17 08:10 Room Air 09/01/17 07:36 36.8 71 18 112/75 (87) 93 Room Air 09/01/17 04:01 Room Air 09/01/17 03:57 36.8 91 16 113/72 (86) 92 Room Air 09/01/17 00:00 Room Air 08/31/17 23:17 36.9 77 15 114/71 (85) 94 Room Air 08/31/17 21:20 36.7 86 22 135/84 (101) 93 Room Air 08/31/17 21:19 36.4 68 16 92 08/31/17 19:21 36.7 81 16 135/88 (104) 92 Room Air 08/31/17 15:30 36.5 76 16 116/76 (89) 94 Room Air 08/31/17 15:30 Room Air 08/31/17 13:36 74 16 120/85 (97) 98 Nasal Cannula 2.0 08/31/17 13:22 64 12 124/85 (98) 99 Nasal Cannula 2.0 08/31/17 13:08 60 16 125/86 (99) 98 Nasal Cannula 2.0 08/31/17 12:27 92 Nasal Cannula 2.0 Oxymask 08/31/17 12:25 92 Nasal Cannula 2.0 08/31/17 12:24 36.7 61 18 117/80 (92) 92 Nasal Cannula 2.0 08/31/17 12:11 119/84 08/31/17 12:08 58 16 08/31/17 12:08 58 16 99 08/31/17 12:06 123/90 08/31/17 12:03 57 16 08/31/17 12:03 57 16 99 08/31/17 12:02 58 15 08/31/17 12:02 58 15 98 08/31/17 12:01 135/93 08/31/17 11:58 36.4 08/31/17 11:57 61 26 98 08/31/17 11:57 61 26 08/31/17 11:56 53 16 100 08/31/17 11:56 53 16 08/31/17 11:52 60 15 08/31/17 11:52 59 15 98 08/31/17 11:51 139/87 08/31/17 11:47 57 14 92 08/31/17 11:47 57 14 08/31/17 11:46 139/93 08/31/17 11:42 58 16 08/31/17 11:42 58 16 94 08/31/17 11:41 152/96 08/31/17 11:37 60 17 08/31/17 11:37 61 17 92 08/31/17 11:36 149/91 08/31/17 11:32 58 14 97 08/31/17 11:32 59 14 08/31/17 11:31 138/99 08/31/17 11:27 68 14 08/31/17 11:27 69 14 100 08/31/17 11:26 153/98 08/31/17 11:25 62 14 99 08/31/17 11:25 61 14 08/31/17 11:21 149/98 08/31/17 11:20 67 15 08/31/17 11:20 68 15 98 08/31/17 11:16 156/96 08/31/17 11:15 65 12 98 08/31/17 11:15 36.6 74 12 156/96 97 Oxymask 10 08/31/17 11:15 65 12 General Appearance: WD/WN, no apparent distress Head: normocephalic, atraumatic Neck: trachea midline Respiratory/Chest: lungs clear, normal breath sounds, no respiratory distress, no accessory muscle use Cardiovascular: regular rate, rhythm, no murmur Abdomen: non distended, soft, no organomegaly, no pulsatile mass, + tenderness (appropriate at incision sites) Incision(s): clean, dry (dressings clean and dry, incisions not inspected) Laboratory Results: Results Past 24 Hours Test 1/2/18 20:32 08/31/17 20:52 09/01/17 01:40 09/01/17 07:53 Range/Units Creatine Kinase MB Ratio 0-3.0 White Blood Count 8.98 8.72 4.8-10.8 K/uL Red Blood Count 4.95 5.01 4.2-5.4 M/uL Hemoglobin 14.2 14.2 12.0-16.0 g/dL Hematocrit 42.9 43.6 37-47 % Mean Corpuscular Volume 86.7 87.0 80-100 fL Mean Corpuscular Hemoglobin 28.7 28.3 25-34 pg Mean Corpuscular Hemoglobin Concent 33.1 32.6 32-36 g/dl RDW Standard Deviation 42.6 42.7 36.4-46.3 fL RDW Coefficient of Variation 13.4 13.4 11.5-14.5 % Platelet Count 256 274 130-400 K/uL Mean Platelet Volume 9.6 9.7 7.4-10.4 fL Sodium Level 137 137 136-145 mmol/L Potassium Level 3.9 3.9 3.5-5.1 mmol/L Chloride Level 104 106 98-107 mmol/L Carbon Dioxide Level 26 26 21-32 mmol/L Anion Gap 7.0 5.0 3-11 mmol/L Blood Urea Nitrogen 6 7 7-18 mg/dl Creatinine 0.90 0.84 0.60-1.20 mg/dl Est Creatinine Clear Calc Drug Dose 78.7 82.9 ml/min Estimated GFR () 88.9 96.6 Estimated GFR (Non- 76.7 83.3 BUN/Creatinine Ratio 7.1 8.8 10-20 Random Glucose 134 104 70-99 mg/dl Calcium Level 9.2 8.8 8.5-10.1 mg/dl Total Bilirubin 0.4 0.5 0.2-1 mg/dl Aspartate Amino Transf (AST/SGOT) 21 20 15-37 U/L Alanine Aminotransferase (ALT/SGPT) 20 18 12-78 U/L Alkaline Phosphatase 111 101 45-117 U/L Creatine Kinase MB < 0.5 0.6 < 0.5 0.5-3.6 ng/ml Troponin I < 0.015 < 0.015 < 0.015 0-0.045 ng/ml Total Protein 8.7 8.3 6.4-8.2 gm/dl Albumin 3.9 3.8 3.4-5.0 gm/dl Globulin 4.8 4.5 2.5-4.0 gm/dl Albumin/Globulin Ratio 0.8 0.8 0.9-2 Diagnostic Interpretation: (CHEST FOR PE) ANGIO WITH CT DOSE: 286.91 mGy.cm HISTORY: 46 years-old Female presents with acute atypical chest pain TECHNIQUE: Multiple CTA images of the chest were obtained after the intravenous administration of 89 ml Optiray 320. Coronal and sagittal MIPS were obtained from the axial data set and were submitted for review. A dose lowering technique was utilized adhering to the principles of ALARA. COMPARISON: Portable chest radiograph 08/30/2017. FINDINGS: CTA: Heart is normal in size without pericardial effusion. Thoracic aorta is normal in both course and caliber without aneurysm or dissection. The imaged great vessels appear patent. The pulmonary arterial tree is opacified to level of the proximal subsegmental branches and demonstrates no focal filling defects to suggest pulmonary thromboembolic disease. CT CHEST: Heterogeneously enlarged thyroid. No pathologic adenopathy about the chest identified. Subsegmental bibasilar consolidative and groundglass opacities are noted with trace left pleural effusion. No pneumothorax. Central airways are patent. There is a mild amount of pneumoperitoneum with free air interposed between the liver and right hemidiaphragm. Soft tissues are unremarkable. Bones appear intact. IMPRESSION: 1. No evidence of pulmonary thromboembolic disease. 2. Bibasilar consolidative and groundglass opacities suggest atelectasis or pneumonia with trace left pleural effusion. 3. Small amount of pneumoperitoneum of the right upper abdomen likely secondary to recent cholecystectomy. Assessment & Plan POD # 1 s/p laparoscopic cholecystectomy -Developed chest pain last evening, EKG showed nonspecific T wave changes - Cardiac enzymes x 2 wnl - ECHO today pending - Abdominal pain minimal and controlled - no nausea or vomiting - vitals stable, no leukocytosis - LFTS wnl Plan: Continue current pain management as needed, recommended oral pain medication instead of IV Continue regular diet Encourage ambulation Await results of ECHO Await hospitalist evaluation today Doing well from surgical standpoint, if cardiac work-up negative may discharge home later today Dr. Burnham has seen and examined patient, agrees with above
[2017-09-01] MEDS: D5W AND 1/2NSS + 20MEQ KCL 1,000 ML IV SCH ×2 (10:12→13:22)
[2017-09-01] MEDS: CIPROFLOXACIN / D5W 400 MG in PREMIXED IN D5W 200 ML IV SCH (10:31)
[2017-09-01 11:11] VITALS: BP 126/83; PULSE 61; TEMP 36.8; O2SAT 97
--- NOTE | 2017-09-01 12:00 | NUR ---
A: Pt resting in bed. No complaints. Visitor at bedside. No changes to assessment. Call jurado within reach. Encouraged to ring for assistance. Will continue to monitor.
--- NOTE | 2017-09-01 13:25 | ECHOCARDIOGRAM REPORT ---
*NOTICE TO RECEIVING LIBERTARIAN AGENCY This information is strictly Confidential and protected under [place] law. [place] law prohibits you from making any further disclosure of this information unless further disclosure is expressly permitted by the written consent of the person to whom it pertains or is authorized by law. A general authorization for the release of medical or other information is not sufficient for this purpose. Hospital accepts no responsibility if the information is made available to any other person, INCLUDING THE PATIENT. Interpretation Summary * Name: SULEIMAN MORGAN Study Date: 09/01/2017 08:43 AM BP: 112/75 mmHg * Patient Location: [facility] HR: 65 * : 1970 (M/d/yyyy) Gender: Female Height: 65 in * Age: 46 yrs Ethnicity: [place] Weight: 163 lb * Ordering Physician: Hortencia Tomlinson * Referring Physician: Self, Referred * Performed By: Liliana Ferrell RCS * * Reason For Study: CHEST PAIN * BSA: 1.8 m2 * The study was technically adequate. * -- Conclusions -- * There is borderline concentric left ventricular hypertrophy. * The left ventricular wall motion is normal. * Left ventricular systolic function is normal. * Ejection Fraction = 60-65%. * The LV diastolic function is normal. * There is no pericardial effusion. * There is no significant valvular heart disease. Procedure Details * A complete two-dimensional transthoracic echocardiogram was performed (2D, M-mode, Doppler and color flow Doppler). Left Ventricle * The left ventricle is normal in size. * There is borderline concentric left ventricular hypertrophy. * Left ventricular systolic function is normal. * Ejection Fraction = 60-65%. * The left ventricular wall motion is normal. Right Ventricle * The right ventricle is normal size. * The right ventricular systolic function is normal as assessed by tricuspid annular plane systolic excursion (TAPSE) (normal >1.5 cm). Atria * The left atrial size is normal. * Right atrial size is normal. * There is no evidence of atrial septal defect, but resolution does not allow assessment for a patent foramen ovale. Mitral Valve * The mitral valve is normal. * There is no mitral valve stenosis. * Significant mitral regurgitation is absent. Tricuspid Valve * The tricuspid valve is normal. * There is no tricuspid stenosis. * Significant tricuspid regurgitation is absent. Aortic Valve * The aortic valve is trileaflet. * Aortic stenosis is absent. * There is no significant aortic regurgitation. Pulmonic Valve * The pulmonary valve is not well seen, but the Doppler examination is normal without significant regurgitation or stenosis. Great Vessels * The aortic root and proximal ascending aorta are normal sized. Pericardium/Pleural * There is no pericardial effusion. Great Vessels * Normal inferior vena cava diameter and respiratory variation suggests normal central venous pressure. Left Ventricular Diastolic Function * The LV diastolic function is normal. MMode 2D Measurements and Calculations IVSd 1.1 cm IVSs 1.4 cm LVIDd 4.2 cm LVIDs 3.2 cm LVPWd 1.0 cm LVPWs 1.2 cm IVS/LVPW 1.1 FS 25.4 % EDV(Teich) 80.6 ml ESV(Teich) 40.0 ml EF(Teich) 50.4 % EDV(cubed) 76.5 ml ESV(cubed) 31.8 ml EF(cubed) 58.5 % % IVS thick 34.5 % % LVPW thick 20.1 % LV mass(C)d 148.1 grams LV mass(C)dI 81.7 grams/m\S\2 LV mass(C)s 138.9 grams LV mass(C)sI 76.6 grams/m\S\2 SV(Teich) 40.6 ml SI(Teich) 22.4 ml/m\S\2 SV(cubed) 44.7 ml SI(cubed) 24.7 ml/m\S\2 Ao root diam 2.9 cm Ao root area 6.8 cm\S\2 ACS 1.9 cm LA dimension 3.4 cm LA/Ao 1.2 LVOT diam 1.9 cm LVOT area 2.8 cm\S\2 LVAd ap4 28.2 cm\S\2 LVLd ap4 7.6 cm EDV(MOD-sp4) 84.4 ml EDV(sp4-el) 89.1 ml LVAs ap4 18.2 cm\S\2 LVLs ap4 6.3 cm ESV(MOD-sp4) 43.1 ml ESV(sp4-el) 44.7 ml EF(MOD-sp4) 48.9 % EF(sp4-el) 49.8 % LVAd ap2 31.4 cm\S\2 LVLd ap2 7.4 cm EDV(MOD-sp2) 108.7 ml EDV(sp2-el) 112.6 ml LVAs ap2 21.2 cm\S\2 LVLs ap2 6.2 cm ESV(MOD-sp2) 59.2 ml ESV(sp2-el) 61.5 ml EF(MOD-sp2) 45.6 % EF(sp2-el) 45.4 % LVLd %diff -1.67 % EDV(MOD-bp) 95.6 ml LVLs %diff -1.34 % ESV(MOD-bp) 50.3 ml EF(MOD-bp) 47.4 % SV(MOD-sp4) 41.2 ml SI(MOD-sp4) 22.7 ml/m\S\2 SV(MOD-sp2) 49.5 ml SI(MOD-sp2) 27.3 ml/m\S\2 SV(MOD-bp) 45.3 ml SI(MOD-bp) 25.0 ml/m\S\2 SV(sp4-el) 44.4 ml SI(sp4-el) 24.5 ml/m\S\2 SV(sp2-el) 51.1 ml SI(sp2-el) 28.2 ml/m\S\2 Doppler Measurements and Calculations MV E max janeen 97.1 cm/sec MV A max janeen 46.9 cm/sec MV E/A 2.1 MV P1/2t max janeen 107.0 cm/sec MV P1/2t 108.5 msec MVA(P1/2t) 2.0 cm\S\2 MV dec slope 288.9 cm/sec\S\2 MV dec time 0.24 sec Ao V2 max 138.9 cm/sec Ao max PG 7.7 mmHg Ao max PG (full) 3.4 mmHg LUIS MIGUEL(V,A) 2.1 cm\S\2 LUIS MIGUEL(V,D) 2.1 cm\S\2 LV V1 max PG 4.3 mmHg LV V1 max 103.4 cm/sec MR max janeen 417.6 cm/sec MR max PG 70.4 mmHg PA V2 max 74.2 cm/sec PA max PG 2.2 mmHg TR max janeen 216.6 cm/sec
--- NOTE | 2017-09-01 14:14 | Progress Note ---
Internal Med Progress Note Date of Service: Sep 01, 2017. Provider Documentation: SUBJECTIVE: Seen and examined at bedside States feeling well Denies chest pain, SOB, abd pain, nausea eager to get discharged No other complaints OBJECTIVE: Vital Signs-as noted below Physical Exam: General Appearance:Moderately built and nourished, no apparent distress Head: normocephalic, Atraumatic Eyes: normal inspection, EOMI, PERRL Neck: supple, Trachea midline Respiratory/Chest: Normal breath sounds, CTA Cardiovascular: S1, S2, No murmur Abdomen/GI:Soft, mild tender, Bowel sounds present Extremities/Musculoskelatal:normal inspection, no edema Neurologic/Psych:AAOX3, grossly no focal neurological deficits Skin: normal color, warm Lab data as noted below. ASSESSMENT & PLAN: CHEST PAIN POD # 1 lap cholecystectomy for acute cholecystitis Chest pain resolved EKG shows new T-wave flattening inferiorly and Laterally leads Repeat EKG: mild T wave changes ECHO: No wall motion abnormality * There is borderline concentric left ventricular hypertrophy. * The left ventricular wall motion is normal. * Left ventricular systolic function is normal. * Ejection Fraction = 60-65%. * The LV diastolic function is normal. * There is no pericardial effusion. * There is no significant valvular heart disease. * Troponin X 3: Negative CTA: No PE Recommend to get stress test as outpatient S/P LAP CHOLECYSTECTOMY POD # 1 management as per surgery DVT Px SCDs Disposition: Per Primary team OK to discharge from medical standpoint Vital Signs: Date Time Temp Pulse Resp B/P (MAP) Pulse Ox O2 Delivery O2 Flow Rate FiO2 09/01/17 12:00 Room Air 09/01/17 11:11 36.8 61 18 126/83 (97) 97 Room Air 09/01/17 08:10 Room Air 09/01/17 07:36 36.8 71 18 112/75 (87) 93 Room Air 09/01/17 04:01 Room Air 09/01/17 03:57 36.8 91 16 113/72 (86) 92 Room Air 09/01/17 00:00 Room Air 08/31/17 23:17 36.9 77 15 114/71 (85) 94 Room Air 08/31/17 21:20 36.7 86 22 135/84 (101) 93 Room Air 08/31/17 21:19 36.4 68 16 92 08/31/17 19:21 36.7 81 16 135/88 (104) 92 Room Air 08/31/17 15:30 36.5 76 16 116/76 (89) 94 Room Air 08/31/17 15:30 Room Air Lab Results: Results Past 24 Hours Test 08/31/17 20:32 08/31/17 20:52 09/01/17 01:40 09/01/17 07:53 Range/Units Creatine Kinase MB Ratio 0-3.0 White Blood Count 8.98 8.72 4.8-10.8 K/uL Red Blood Count 4.95 5.01 4.2-5.4 M/uL Hemoglobin 14.2 14.2 12.0-16.0 g/dL Hematocrit 42.9 43.6 37-47 % Mean Corpuscular Volume 86.7 87.0 80-100 fL Mean Corpuscular Hemoglobin 28.7 28.3 25-34 pg Mean Corpuscular Hemoglobin Concent 33.1 32.6 32-36 g/dl RDW Standard Deviation 42.6 42.7 36.4-46.3 fL RDW Coefficient of Variation 13.4 13.4 11.5-14.5 % Platelet Count 256 274 130-400 K/uL Mean Platelet Volume 9.6 9.7 7.4-10.4 fL Sodium Level 137 137 136-145 mmol/L Potassium Level 3.9 3.9 3.5-5.1 mmol/L Chloride Level 104 106 98-107 mmol/L Carbon Dioxide Level 26 26 21-32 mmol/L Anion Gap 7.0 5.0 3-11 mmol/L Blood Urea Nitrogen 6 7 7-18 mg/dl Creatinine 0.90 0.84 0.60-1.20 mg/dl Est Creatinine Clear Calc Drug Dose 78.7 82.9 ml/min Estimated GFR () 88.9 96.6 Estimated GFR (Non- 76.7 83.3 BUN/Creatinine Ratio 7.1 8.8 10-20 Random Glucose 134 104 70-99 mg/dl Calcium Level 9.2 8.8 8.5-10.1 mg/dl Total Bilirubin 0.4 0.5 0.2-1 mg/dl Aspartate Amino Transf (AST/SGOT) 21 20 15-37 U/L Alanine Aminotransferase (ALT/SGPT) 20 18 12-78 U/L Alkaline Phosphatase 111 101 45-117 U/L Creatine Kinase MB < 0.5 0.6 < 0.5 0.5-3.6 ng/ml Troponin I < 0.015 < 0.015 < 0.015 0-0.045 ng/ml Total Protein 8.7 8.3 6.4-8.2 gm/dl Albumin 3.9 3.8 3.4-5.0 gm/dl Globulin 4.8 4.5 2.5-4.0 gm/dl Albumin/Globulin Ratio 0.8 0.8 0.9-2
[2017-09-01 14:42] VITALS: BP 126/83; PULSE 61; TEMP 36.8; O2SAT 97
--- NOTE | 2017-09-01 14:45 | NUR ---
A: Pt given verbal and written discharge instructions. All questions and concerns answered. Heart monitor removed. Pt verbalized understanding of discharge instructions. Refused volunteer escort.
--- NOTE | 2017-09-02 15:57 | Discharge Summary ---
Discharge Summary Dates Admission Date / Time: Aug 30, 2017 at 08:18 Discharge Date: Sep 01, 2017 Dispostion / Condition Discharge Disposition: Home Condition at Discharge: Good Principal Diagnosis (1) RUQ abdominal pain (2) Cholelithiasis (3) Acute cholecystitis (4) Chest pain Problem List (1) S/P cholecystectomy Consultations / Procedures Consultations: Hospitalist Procedures: Laparoscopic Cholecystectomy Pending Studies / Follow-Up Gallbladder pathology- to be reviewed at follow up visit Medication Reconciliation Medication Profile: No Active Prescriptions or Reported Meds Admission HPI Per the Admitting provider: pt is a 46 year old female who presents to ER for one day history RUQ pain with nausea and vomiting, the pain is located at RUQ, pt denies fever, no diarrhea, no chest pain, Hospital Course (1) RUQ abdominal pain Ultrasound of the RUQ showed distended gallbladder with gallstones present. No signs of acute cholecystitis. Patient was admitted to the hospital under observation and placed NPO, with IV fluids, IV antibiotics, IV pain medication and zofran as needed. Scheduled for laparoscopic cholecystectomy the next day. (2) Acute cholecystitis Patient was taken to operating room for laparoscopic cholecystectomy on hospital day # 1 . Patient's gallbladder was distended and there were findings consistent with acute cholecystitis. Patient tolerated procedure well and was transferred to recovery room in stable condition. Her diet was advanced to regular diet post op. She was evaluated in the evening of operative day and was having moderate throat pain and abdominal pain that was controlled with on IV pain medication. She was therefore kept overnight for pain management. In the evening of POD # 0 she developed chest pain in which she had prior to the procedure but did not tell anyone. Hospitalist was consulted and an EKG was ordered which showed normal sinus rhythm, nonspecific T wave abnormality in the inferior leads which was a change from her previous EKG on / which showed ST & T wave abnormality in the anterior leads. She was transferred to Telemetry for observation and cardiac enzymes were ordered x 3 which were all within normal range. CTA of the chest showed no evidence of pulmonary embolism but did show some bibasilar consolidative and ground glass opacities suggesting atelectasis vs pneumonia. She also had a trace left pleural effusion. Repeat EKG on 3 showed normal sinus rhythm with sinus arrhythmia and nonspecific T wave abnormality. On the morning of POD # 1 patient was evaluated and doing well. Chest pain resolved, minimal abdominal pain controlled with oral pain medication, tolerating regular diet, no nausea or vomiting, ambulating hallway and urinating without difficulty. She underwent a resting Echocardiogram which showed borderline LV hypertrophy, normal LV wall motion, and EF 60-65%. She was discharged home in stable condition on POD # 1. Discharged with po Percocet as needed for pain as well as a 5 day course of Levaquin based on CTA findings. (3) Chest pain Please refer to above Discharge Instructions as given to patient Copies To Primary Care Provider: Karen,[facility].
== END 2017-09-01 14:50 | disposition home or self-care (01) | DRG 419 ==
LOC: C.EDB 04:11 → C.MSW 08:18 → EDBEDREQ 08:21 → ENRESERV 08:41 → C.2T 08-31 21:02
PROVIDERS: ADMIT Surgery; ATTEND Surgery
PROC: 0FT44ZZ Resection of Gallbladder, Percutaneous Endoscopic Approach (ICD-10-PCS; principal; 2017-08-31 07:00)
DX: K80.00 Calculus of gallbladder with acute cholecystitis without obstruction (principal); R07.9 Chest pain, unspecified